=== PATIENT | male | born 1970 | race Hispanic/Latino ===

== ENCOUNTER 2024-06-01 09:08 | Outpatient (CLI) | payer BC | END 2024-06-01 09:09 | disposition home or self-care (01) | LOC: SCSMRI 09:08 | PROVIDERS: ATTEND Pediatrics | DX: M19.022 Primary osteoarthritis, left elbow (principal); M67.824 Other specified disorders of tendon, left elbow; G56.82 Other specified mononeuropathies of left upper limb ==